=== PATIENT | male | born 1955 | race Caucasian/White ===

== ENCOUNTER 2020-11-28 11:13 | Emergency (ER) | payer BC, SELFPAY ==
--- NOTE | ~2020-11-28 | XR_ITS ---
XR knee LT min 4V DATE: 11/28/2020 11:49 INDICATION: Fall yesterday. Generalized left knee pain. TECHNIQUE: 5 views COMPARISON: None FINDINGS: There is a nondisplaced linear transverse fracture at the upper pole of the patella. There is distention of the suprapatellar bursa likely due to hemarthrosis due to the patellar fracture. No other fracture or dislocation. No periosteal reaction or bone destruction. There is mild periarticular spurring at the patellofemoral and medial compartments consistent with os teoarthritis. No radiopaque intra-articular loose body or chondrocalcinosis. IMPRESSION: Virtually nondisplaced transverse intra-articular fracture of the superior pole of patell a with associated hemarthrosis Reviewed, dictated and finalized at location A. TIME PARAMEDIC IMPRESSION: Virtually nondisplaced transverse intra-articular fracture of the s uperior pole of patella with associated hemarthrosis
[2020-11-28 11:37] VITALS: BP 145/99; PULSE 58; RESP 16; TEMP 36.4; O2SAT 99
[2020-11-28 11:39] VITALS: BP 145/99; PULSE 58; RESP 16; TEMP 36.4; O2SAT 99
--- NOTE | 2020-11-28 12:08 | ED.LOWEXIN ---
HPI - Extremity Injury (Lower) General Chief Complaint: Extremity Injury, Lower Stated Complaint: left knee pain Time Seen by Provider: 11/28/20 11:40 Source: patient and RN notes reviewed Mode of arrival: ambulatory (With cane) Limitations: no limitations History of Present Illness HPI Narrative: Patient presents today complaining of an injury to his left knee. He reports he tripped and fell at home onto his knee last night. Currently rates his pain 7/10 and has tried no quwe-hom-lokypnc treatment prior to arrival. Pain increases with bending and ambulation. Patient has numbness and tingling in the leg at baseline due to previous back surgeries and back issues, but states the numbness and tingling is no worse than normal. MD complaint: knee injury Related Data Home Medications Medication Instructions Recorded Confirmed amlodipine 11/28/20 diclofenac sodium PO 11/28/20 fenofibric acid (choline) mg PO 11/28/20 hydrochlorothiazide 11/28/20 metoprolol tartrate 11/28/20 omeprazole 11/28/20 quinapril mg 11/28/20 sertraline mg 11/28/20 Allergies Allergy/AdvReac Type Severity Reaction Status Date / Time bee venom protein (honey bee) Allergy Unknown Verified 11/28/20 11:33 Review of Systems Review of Systems: Narrative: CONSTITUTIONAL: Denies body aches, fever, chills, or sweats. EYES: Denies visual changes, redness, or discharge. ENT: Denies rhinorrhea, congestion, sore throat, or otalgia. CARDIOVASCULAR: Denies chest pain, palpitations, or edema. RESPIRATORY: Denies cough or dyspnea. GASTROINTESTINAL: Denies abdominal pain, nausea, vomiting, or diarrhea. GENITOURINARY: Denies dysuria or hematuria. SKIN: Denies rash, itching, or wounds. MUSCULOSKELETAL: Denies back pain, or myalgia. + Left knee injury NEUROLOGIC: Denies headache, or weakness. PSYCH: Denies depression or anxiety. [facility] Past Medical History Medical History (Updated 11/28/20 @ 12:16 by Emely Frank, JAVON, BC) Anxiety Depression GERD (gastroesophageal reflux disease) Hypercholesterolemia Hypertension Surgical History Surgical History (Updated 11/28/20 @ 12:11 by Emely Frank, PROGRAM ARCHITECT, BC) History of right knee joint replacement Previous back surgery Comments At time of signature, I have reviewed and agree with nursing past medical, surgical, social and family history unless otherwise noted. Please see nursing chart for further information. There is no relevant family history pertinent to the presenting complaint Exam Narrative: Exam Narrative: GENERAL: Well-appearing, well-nourished, and in no acute distress. HEAD: Normocephalic, atraumatic. EYES: EOMI. No redness or drainage. Conjunctivae normal. ENT: Mucous membranes pink and moist. NECK: Normal AROM. CHEST: No respiratory distress. EXTREMITIES: Left knee: Tenderness to the patella. Moderate effusion about the joint. No ecchymosis or erythema noted. Limited range of motion of the knee due to pain. Distal sensation intact. Capillary refill normal. Posterior tibial pulse normal. SKIN: Warm, dry, no rash. Capillary refill normal. Normal skin turgor. NEURO: No focal deficits. Alert and oriented x3. Gait limping with use of cane. PSYCH: Normal affect. No signs of depression or anxiety. Course Vital Signs Vital signs: Vital Signs Temperature 97.6 F 11/28/20 11:37 Pulse Rate 58 L 11/28/20 11:37 Respiratory Rate 16 11/28/20 11:37 Blood Pressure 145/99 H 11/28/20 11:37 Pulse Oximetry 99 11/28/20 11:37 Temperature 97.6 F 11/28/20 11:39 Pulse Rate 58 L 11/28/20 11:39 Respiratory Rate 16 11/28/20 11:39 Blood Pressure 145/99 H 11/28/20 11:39 Pulse Oximetry 99 11/28/20 11:39 Reviewed. Pt has been instructed to follow up with his PCP regarding his elevated blood pressure today. Procedures Orthopedic Splinting/Casting Injury #1: Splinting/Casting Date: 11/28/20 Splinting/Casting Time: 12:12 Side: left
== END 2020-11-28 12:25 | disposition home or self-care (01) ==
PROVIDERS: Emergency Provider Nurse Practitioner; PCP Internal Medicine
DX: S82.035A Nondisplaced transverse fracture of left patella, initial encounter for closed fracture (principal); W01.0XXA Fall on same level from slipping, tripping and stumbling without subsequent striking against object, initial encounter; K21.9 Gastro-esophageal reflux disease without esophagitis; E78.00 Pure hypercholesterolemia, unspecified; I10 Essential (primary) hypertension; Z96.651 Presence of right artificial knee joint; F41.9 Anxiety disorder, unspecified; F32.9 Major depressive disorder, single episode, unspecified
CPT/HCPCS: 73564; 99204; G0463

== ENCOUNTER 2025-08-04 11:53 | Outpatient (CLI) | payer MEDICARE, SELFPAY ==
--- OUTSIDE RECORDS SUMMARY | 2009-12-14 18:00 | XMS_ITS | Continuity of Care Document ---
Author Organization [facility] Address [address] [place] [address] Phone Care Team Providers Care Automobile Detailer Name Role Phone [facility] Unavailable Unavail able Nilda Preston Unavailable Unavailable Procedures Procedure Date Vision Svcs Frames Purchases Progressive Lens, Polycarb Tint Photochromatic, Polycarb 0 Anti-reflective Coating Tax - Medical Eye Exam & Treatment Refraction Advance Directives Directive Yes / No Effective Date File Name No Information Encounters Encounter Description Practice Location Reason(s) For Visit Diagnoses Date Provider Providers Copied on Encounter [facility], [address] [place] [address] [facility] [address], [place], [place], [id number], [place] tel:[phone] [facility] No Information [phone] [facility] . [address] [facility], [facility] [address], [place], [place], [id number], [place]. tel:[phone] Referring Provider: Rodrigo Arreola, [address], [place], [address]. tel:[phone] mcduffie Provider: Nilda Preston, [address] [facility], [place], [address]. tel:[phone] 9836 [facility], [address], [place], [place], [id number], [place] tel:[phone] [facility] No Information [phone] OD Rodrigo. [address] , [address], [place], [address], [place]. tel:[phone] Family History Family Member Type Diagnosis Age At Onset No Information Payers Payer name Insurance type Covered alliance party ID Authoriza tion(s) No Information Social History Type Description Quantity Date Captured Comments Sex Male Smoking Status No Information Chief Complaint And Reason For Visit No Information Reason For Referral Reason For Referral No Information History Of Present Illness Encounter Date Complaint History Of Prese nt Illness No Information Functional Status Date Functional Assessmen t No Information Instructions Date Instruction Additional Infor mation No Information Assessments Type Assessment Date No Information Patient Care Teams Name Effective Dates (start - stop) Status Members No Information
--- NOTE | ~2025-08-04 | XR_ITS ---
EXAMINATION: XR hand BI arthritis min 3V, 08/04/2025 12:03 BILLING TYPIST HISTORY: M18.9 - Osteoarthritis of first carpometacarpal joint, un... COMPARISON: No comparisons available. Findings: No acute fracture or malalignment. Severe degenerative changes of the carpal bones and the metacarpal carpal joints with mild of the joint spaces, osteophytosis and chondrocalcinosis. Small erosions are noted. Soft tissue swelling noted. Impression: No acute fracture or malalignment. Reviewed, dictated and finalized at location P. ING TYPIST Impression: No acute fracture or malalignment.
--- OUTSIDE RECORDS SUMMARY | 2025-08-04 14:04 | XMS_ITS | Clinical Summary ---
Author Organization [facility] Address [address] [place] [address] Care Team Providers Care Director Of Medical Review Name Role Phone Trae Dixon MD Primary Care Provider Allergies Active Allergy Reactions Criticality Noted Date Comments Duloxetine Mental status changes Low 08/30/2021 feel crazy Venom-Honey Bee Swelling High 06/07/2018 Medications sertraline (ZOLOFT) 100 mg tabletIndications:An xiety with Depression Take 1 tablet (100 mg total) by mouth nightly 100 mg am 50 mg pm Active sertraline (ZOLOFT) 50 mg tabletIndications:An xiety with Depression Take 1 tablet (50 mg total) by mouth mechanical engineer before breakfast Active triamcinolone (KENALOG) 0.1 % ointment Apply 1 Application topically as needed for irritation or rash 03/05/[address] (VOLTAREN) 75 mg EC tablet Take 1 tablet (75 mg total) by mouth 2 (two) times a day 08/06/20 23 Active fenofibrate nanocrystallized (TRICOR) 145 mg tabletIndications:hy percholesterolemia,h yperlipidemia Take 1 tablet (145 mg total) by mouth mechanical engineer before breakfast 07/23/20 23 Active FeroSuL 325 mg (65 mg iron) tabletIndications:Ir on Deficiency Anemia Take 1 tablet (325 mg total) by mouth 2 (two) times a day 08/10/20 23 Active carvediloL (COREG) 25 mg tabletIndications:My ocardial Reinfarction Prevention Take 2 tablets (50 mg total) by mouth 2 (two) times a day Active spironolactone (Aldactone) 25 mg tabletIndications:hy pertension Take 1 tablet (25 mg total) by mouth mechanical engineer before breakfast 03/26/20 24 Active metFORMIN (FORTAMET) 500 mg 24 hr tabletIndications:ty pe 2 diabetes mellitus Take 1 tablet (500 mg total) by mouth daily with breakfast 03/26/20 24 Active NIFEdipine (Procardia XL) 60 mg 24 hr tabletIndications:ht n Take 1 tablet (60 mg total) by mouth mechanical engineer before breakfast 05/14/20 24 Active hydrALAZINE (APRESOLINE) 25 mg tabletIndications:hy pertension Take 1 tablet (25 mg total) by mouth 2 (two) times a day Active furosemide (LASIX) 40 mg tabletIndications:hy pertension Take 1 tablet (40 mg total) by mouth mechanical engineer before breakfast Active ezetimibe (ZETIA) 10 mg tabletIndications:hy percholesterolemia,h yperlipidemia Take 1 tablet (10 mg total) by mouth mechanical engineer before breakfast 05/14/20 24 Active aspirin 81 mg enteric coated tabletIndications:pr evention of thrombosis Take 1 tablet (81 mg total) by mouth mechanical engineer before breakfast 05/14/20 24 Active omeprazole (PriLOSEC) 40 mg capsuleIndications:T reatment of Non-Bleeding Gastric Disorder Take 1 capsule (40 mg total) by mouth mechanical engineer before breakfast Active valsartan (DIOVAN) 320 mg tabletIndications:ch ronic heart failure,hypertension Take 1 tablet (320 mg total) by mouth daily before breakfast Active cholecalciferol, vitamin D3, (VITAMIN D3 ORAL)Indications:sup plement Take 1 tablet by mouth mechanical engineer before breakfast Active Active Problems Problem Noted Date Diagnosed Date Entrapment, ilioinguinal nerve 01/07/2025 Chronic pain of both wrists 01/07/2025 Polyneuropathy 11/04/2024 Bilateral carpal tunnel syndrome 11/04/2024 Metabolic syndrome 11/04/2024 Vocal cord leukoplakia 07/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 07/23/2024 Atherosclerosis of [place] of extremities with intermittent claudication, unspecified extremity 03/26/2024 Overview (08/19/2024): midl distal by sushma , neg senslae Aortic root dilatation 12/12/2023 Pulmonary hypertension 10/23/2023 Chronic obstructive pulmonary disease, unspecifi ed 10/11/2023 Adenomatous polyp of colon 10/06/2023 Anemia, iron deficiency 10/06/2023 Overview (08/19/2024): nml b12 and foalte Left bundle branch hemiblock 10/06/2023 Obesity 10/06/2023 Overview (08/19/2024): could ont afford wegovy Other abnormal glucose 10/06/2023 Influenza due to unidentifie d influenza virus with other respiratory manifestations 10/06/2023 Chronic diastolic (congestive) heart failure Overview (08/19/2024): lonnie and isa not covered Wound dehiscence 10/17/2022 Fusion of spine of thoracolumbar region 10/02/19 Spinal stenosis, lumbar essence on, with neurogenic claudication 08/23/2022 Spinal stenosis of lumbar region with radiculopa thy 08/23/2022 COVID-19 07/12/2022 Adrenal mass 06/29/2022 Smoker 06/19/2022 Bilateral impacted cerumen 06/13/2022 Eczema 06/13/2022 H/O excision of lamina of ce rvical vertebra for decompression of spinal cord 05/08/2022 Cervical stenosis of spine 03/22/2022 Prophylactic antibiotic 11/10/2021 Encounter for education 11/10/2021 Cervical spondylosis with myelopathy 11/04/2021 Alteration in anticoagulation 11/04/2021 Vitamin D deficiency 11/04/2021 Anxiety state 10/11/2021 Osteoarthritis 10/11/2021 Back pain 10/11/2021 Depression 10/11/2021 Epicondylitis 10/11/2021 Gastroesophageal reflux disease 10/11/2021 History of colonic polyps 10/11/2021 Essential hypertension 10/11/2021 Hypertriglyceridemia 10/11/2021 Olecranon bursitis of left elbow 09/13/2021 Ex-smoker 01/19/2021 Family history of sudden 01/19/2021 Postoperative seroma of subc utaneous tissue after non-dermatologic procedure 07/06/2020 Fixation hardware in spine 10/29/2019 Loosening of hardware in spine 10/16/2019 S/P lumbar laminectomy 03/08/2019 Thoracic compression fracture 03/08/2019 Spinal instability, lumbosacral 02/25/2019 Spinal stenosis of lumbar region 09/19/2011 Encounters Date Type Department Care Team Description 05/05/2025 11:00 AM CDT Therapy [facility] Medicine Otolaryngology [address] [place] [address] Ning Hyatt, DENTAL COORDINATOR Muscle tension dysphonia (Primary Dx); Globus sensation from Last 3 Months Immunizations Immunization Administration Dates Next Due Influenza, Quadrivalent, Hig h Dose, Preservative Free, Intrr 08/26/2022 Surgical History Surgery Date Site/Laterality Comments ELBOW SURGERY 10/01/2020 - 09/30/2021 HAND SURGERY 10/01/1998 - 09/30/1999 KNEE ARTHROPLASTY 10/01/2017 - 09/30/2018 Right OTHER SURGICAL HISTORY 06/01/2020 - 06/30/2020 Left L5-S1 charles procedure EPIDURAL STEROID INJECTION Multiple to lumbar / scarum area OTHER SURGICAL HISTORY 10/01/2019 - 10/31/2019 Bilateral L5-S1 pedical screw fixation LUMBAR FUSION 03/01/2019 - 03/30/2019 L5-S1 anterior lumbar interbody fusion with allograft, internal fixation DISCOGRAM 12/30/2018 - 01/28/2019 POSTERIOR LAMINECTOMY / DECOMPRESSION LUMBAR SPINE 08/01/2014 - 08/30/2014 LAMINOPLASTY POSTERIOR CERVICAL SPINE 03/22/2022 C4 - C6 BACK SURGERY 10/01/2022 - 09/30/2023 I&D BACK SURGERY 08/23/2022: [id number] PSIF with correction of kyphotic deformity with 03/22/22- C4-7 laminoplasty and Revision laminectomy COLONOSCOPY -2023 Medical History Medical History Date Comments Anxiety Hypertension 1999 GERD (gastroesophageal reflux disease) 1999 Peripheral neuropathy Depression Arthritis Pneumothorax with hemothorax, open, traumatic Influenza due to unidentifie d influenza virus with other respiratory manifestations 10/06/2023 Sleep apnea 2022 Anemia 2022 COPD (chronic obstructive pulmonary disease) 202 I Dizziness 2019 CHF (congestive heart failure) ([facility]) 2022 Family History Medical History Relation Name Comments Allergies Brother Gerson Luong Hypertension Brother Gerson Luong Emphysema Father Allergies Mother Taty Cano Cancer Mother Taty Cano Anesthesia problems Neg Hx Malig Hypertension Neg Hx Malig Hyperthermia Neg Hx Pseudochol deficiency Neg Hx Relation Name Status Comments Brother Gerson Luong Father Mother Taty Cano Social History Tobacco Use Types Packs/Day Years Used Date Smoking Tobacco: Former Cigarettes 2 49 1 964 - 2012 Smokeless Tobacco: Never Tobacco Cessation:Counseling Given: No Social Connection and Isolation Panel Answer Date Recorded In a typical week, how many times do you talk on the phone with family, friends, or neighbors? More than three times a week 10/20/2022 How often do you get togethe r with friends or relatives? Three times a week 10/20/2022 How often do you attend [facility] or caodaism services? 1 to 4 times per year 10/20/2022 Do you belong to any clubs o r organizations such as sikhism groups, unions, fraternal or athletic groups, or school groups? Yes 10/20/2022 How often do you attend meet ings of the clubs or organizations you belong to? 1 to 4 times per year 10/20/2022 Are you , , di vorced, , never , or living with a partner? Never 10/20/2022 AUDIT-C Answer Date Recorded Q1: How often do you have a drink containing alc ohol? 2-3 times a week 08/07/2024 Q2: How many drinks containi ng alcohol do you have on a typical day when you are drinking? 1 or 2 08/07/2024 Q3: How often do you have si x or more drinks on one occasion? Never 08/07/2024 Overall Financial Resource Strain (CARDIA) Answe r Date Recorded How hard is it for you to pa y for the very basics like food, housing, medical care, and heating? Not hard at all 10/20/2022 PHQ-2 Answer Date Recorded PHQ-2 Total Score 0 10/17/2022 Hunger Vital Sign Answer Date Recorded Within the past 12 months, y ou worried that your food would run out before you got the money to buy more. Never true 10/20/19 Within the past 12 months, t he food you bought just didn't last and you didn't have money to get more. Never true 10/20/2022 PRAPARE - Transportation Answer Date Re corded In the past 12 months, has l ack of transportation kept you from medical appointments or from getting medications? No 10/02 In the past 12 months, has l ack of transportation kept you from meetings, work, or from getting things needed for daily living? No 10/20/2022 Housing Stability Vital Sign Answer Orestes e Recorded In the last 12 months, was t here a time when you were not able to pay the mortgage or rent on time? No 10/20/2022 In the last 12 months, how many places have you lived? 1 10/20/2022 In the last 12 months, was t here a time when you did not have a steady place to sleep or slept in a custodial (including now)? No 10/20/2022 Personal Safety Answer Date Recorded Have you ever been in or are you currently in a harmful physical or emotional relationship or is someone making you feel afraid or unsafe? Denies 09/15/2024 Sex and Gender Information Value Date Recorded Sex Assigned at Not on file Legal Sex Male 1:44 PM UNATTENDED GROUND SENSOR SPECIALIST Gender Identity Male 08/30/2021 9:43 AM UNATTENDED GROUND SENSOR SPECIALIST Sexual Orientation Straight 08/30/2021 9: 43 AM UNATTENDED GROUND SENSOR SPECIALIST Last Filed Vital Signs Vital Sign Reading Time Taken Comments Blood Pressure 141/92 11/03/2024 1:50 PM UNATTENDED GROUND SENSOR SPECIALIST Pulse 71 11/03/2024 1:50 PM UNATTENDED GROUND SENSOR SPECIALIST Temperature 36.5 C (97.7 F) 09/15/2024 10:05 AM UNATTENDED GROUND SENSOR SPECIALIST Respiratory Rate 14 09/15/2024 10:31 AM UNATTENDED GROUND SENSOR SPECIALIST Oxygen Saturation 95% 09/15/2024 10:31 AM UNATTENDED GROUND SENSOR SPECIALIST Inhaled Oxygen Concentration - - Weight 107 kg (236 lb) 11/03/2024 1:50 PM UNATTENDED GROUND SENSOR SPECIALIST Height 177.8 cm (5' 10) 11/03/2024 1:50 PM UNATTENDED GROUND SENSOR SPECIALIST Body Mass Index 33.86 11/03/2024 1:50 PM UNATTENDED GROUND SENSOR SPECIALIST Plan of Treatment Health Maintenance Due Date Last Done Comments Colon Cancer Screening-Colonoscopy 1955 Hepatitis C Screening 1955 Prostate Cancer Screening-PSA 1955 DTaP/Tdap/Td Vaccine (1 - Tdap) 01/02/1967 Hepatitis B Screening 01/02/1974 Lung Cancer Screening 01/02/2006 Zoster Vaccine (1 of 2) 01/02/2006 Pneumococcal vaccine 65+ (2 of 2 - PCV) 08/07/2015 08/07/2014 Abdominal Aortic Aneurysm (A AA) Screen 01/02/2021 Well Visit 65+ 01/02/2021 Depression Screening 10/16/2023 10/16/2022, 10/16/19 Covid-19 Vaccine (4 - 2024-2 6 season) 2025 08/09/2021, 12/20/2020, 11/23/2020 Influenza Vaccine (#1) 2025 2, 08/06/2020, 07/16/2019, Additional history exists Fall Risk Assessment 09/15/2025 09/15/2024 Medical Devices Implanted Type Area Grain Scooper Device Identifier Shelf Expiration Date Model / Serial / Lot Allosource Crushed Chip Frozen Graft 90ml Bone Cancellous [id number] - [id number] Implanted:Qty: 1 on 08/23/2022 by Jered Hernandez MD at [facility] Graft N/A: Spine Lumbar Allosource 04/24/2027 [id number] / / [id number] Medtronic Inc Centerpiece 12mm Lateral Hole Open Door Color Coded Spine Plate [id number] - [id number] Implanted:Qty: 3 on 03/22/2022 by Jered Hernandez MD at [facility] N/A: Spine Cervical Medtronic Inc [id number] / / Medtronic Inc Centerpiece 2.6mm 5mm Self Tap Stab Grab Color Coded Spine Screw [id number] - [id number] Implanted:Qty: 6 on 03/22/2022 by Jered Hernandez MD at [facility] N/A: Spine Cervical Medtronic Inc [id number] / / Medtronic Inc Centerpiece 2.6mm 7mm Self Tap Stab Grab Color Coded Spine Screw [id number] - [id number] Implanted:Qty: 6 on 03/22/2022 by Jered Hernandez MD at [facility] N/A: Spine Cervical Medtronic Inc [id number] / / Depuy Synthes Spine Expedium 5mm 55mm Polyaxial 1 Innie Spine Screw Bone Titanium 5.5 [id number] - [id number] Implanted:Qty: 1 on 08/23/2022 by Jered Hernandez MD at [facility] N/A: Spine Lumbar Depuy Synthes Spine [id number] / / Depuy Synthes Spine Expedium 6.5mm 50mm Polyaxial Spine Screw Bone Titanium 5.5mm Roger [id number] - [id number] Implanted:Qty: 6 on 08/23/2022 by Jered Hernandez MD at [facility] N/A: Spine Lumbar Depuy Synthes Spine [id number] / / Depuy Synthes Spine Expedium 6.5mm 55mm Polyaxial Spine Screw Bone Titanium 5.5mm Roger [id number] - [id number] Implanted:Qty: 2 on 08/23/2022 by Jered Hernandez MD at [facility] N/A: Spine Lumbar Depuy Synthes Spine [id number] / / Depuy Synthes Spine Expedium 7mm 55mm 1 Innie Polyaxial Spine Screw Bone Titanium [id number] - [id number] Implanted:Qty: 2 on 08/23/2022 by Jered Hernandez MD at [facility] N/A: Spine Lumbar Depuy Synthes Spine [id number] / / Depuy Synthes Spine Expedium 7.5mm 55mm 1 Innie Polyaxial Spine Screw Bone Titanium [id number] - [id number] Implanted:Qty: 1 on 08/23/2022 by Jered Hernandez MD at [facility] N/A: Spine Lumbar Depuy Synthes Spine [id number] / / Depuy Synthes Spine Expedium 8mm 60mm Polyaxial Spine Screw Bone Titanium [id number] - [id number] Implanted:Qty: 1 on 08/23/2022 by Jered Hernandez MD at [facility] N/A: Spine Lumbar Depuy Synthes Spine [id number] / / Depuy Synthes Spine Expedium 8mm 50mm Polyaxial Screw Bone [id number] - [id number] Implanted:Qty: 1 on 08/23/2022 by Jered Hernandez MD at [facility] N/A: Spine Lumbar Depuy Synthes Spine [id number] / / Depuy Synthes Spine Expedium 8mm 55mm Polyaxial Spine Screw Bone Titanium Nonsterile [id number] - [id number] Implanted:Qty: 1 on 08/23/2022 by Jered Hernandez MD at [facility] N/A: Spine Lumbar Depuy Synthes Spine [id number] / / Depuy Synthes Spine Expedium 1 Inner Monoaxial Spine Screw Set Titanium [id number] - [id number] Implanted:Qty: 16 on 08/23/2022 by Jered Hernandez MD at [facility] N/A: Spine Lumbar Depuy Synthes Spine [id number] / / Depuy Synthes Spine Expedium 5.5mm 480mm Roger Spinal Titanium Nonsterile [id number] - [id number] Implanted:Qty: 2 on 08/23/2022 by Jered Hernandez MD at [facility] N/A: Spine Lumbar Depuy Synthes Spine [id number] / / Depuy Synthes Spine Substitute Bone Graft Fibergraft Gps Medium Putty 6cc [id number] - [id number] Implanted:Qty: 1 on 08/23/2022 by Jered Hernandez MD at [facility] N/A: Spine Lumbar Depuy Synthes Spine [id number] 01/11/2025 [id number] / / [id number] Depuy Synthes Spine Substitute Bone Graft Fibergraft Gps Medium Putty 6cc [id number] - [id number] Implanted:Qty: 1 on 08/23/2022 by Jered Hernandez MD at [facility] N/A: Spine Lumbar Depuy Synthes Spine [id number] / / [id number] Allosource Crushed Chip Frozen Graft 30ml Bone Cancellous [id number] - [id number] Implanted:Qty: 1 on 08/23/2022 by Jered Hernandez MD at [facility] N/A: Spine Lumbar Allosource 01/30/2027 [id number] / / [id number] Medtronic Inc Infuse 18mm Sponge [id number] - [id number] Implanted:Qty: 1 on 08/23/2022 by Jered Hernandez MD at [facility] N/A: Spine Lumbar Medtronic Inc [id number] 01/29/2024 [id number] / / [id number] Medtronic Inc Infuse 18mm Sponge [id number] - [id number] Implanted:Qty: 1 on 08/23/2022 by Jered Hernandez MD at [facility] N/A: Spine Lumbar Medtronic Inc [id number] 01/29/2024 [id number] / / [id number] Depuy Synthes Spine Expedium 5mm 50mm 1 Innie Polyaxial Spine Screw Bone Titanium [id number] - [id number] Implanted:Qty: 1 on 08/23/2022 by Jered Hernandez MD at [facility] N/A: Spine Lumbar Depuy Synthes Spine [id number] / / Depuy Synthes Spine Substitute Bone Graft Fibergraft Large Bioactive Glass Putty [id number] - [id number] Implanted:Qty: 1 on 09/04/2022 by Jered Hernandez MD at [facility] N/A: Spine Lumbar Depuy Synthes Spine [id number] 08/03/2024 [id number] / / [id number] Allosource Crushed Chip Frozen Graft 60ml Bone Cancellous [id number] - [id number] Implanted:Qty: 1 on 09/04/2022 by Jered Hernandez MD at [facility] N/A: Spine Lumbar Allosource [id number] 08/12/2026 [id number] / / [id number] Explanted Type Area Grain Scooper Device Identifier Shelf Expiration Date Model / Serial / Lot Spinous Process Clamp Explanted:Qty: 1 on 08/23/2022 by Jered Hernandez MD at [facility] N/A: Spine Lumbar Medtronic Screws Explanted:Qty: 4 on 08/23/2022 by Jered Hernandez MD at [facility] N/A: Spine Lumbar Medtronic Description:7.0 x 55m x2 8.0 x 50mm x1 8.0 x 55mm x1 Rods Explanted:Qty: 2 on 08/23/2022 by Jered Hernandez MD at [facility] N/A: Spine Lumbar Medtronic Set Screws Explanted:Qty: 4 on 08/23/2022 by Jered Hernandez MD at [facility] N/A: Spine Lumbar Medtronic Insurance MEDICARE [facility] MEDICARE [employer] SENIOR SUPPLEMENT Advance Directives For more information, please contact: [phone] * Full Code (Latest Code Status on File) Date Activated Date Inactivated Comments 10/17/2022 10:21 PM 10/19/2022 9:12 PM * Full Code Date Activated Date Inactivated Comments 08/23/2022 11:41 PM 09/06/2022 9:41 PM * Full Code Date Activated Date Inactivated Comments 03/22/2022 6:06 PM 03/24/2022 5:28 PM Care Teams Director Of Medical Review Relationship Specialty Start Date End Date Trae Dixon MD PCP - General Internal Medicine 04/26/21
--- OUTSIDE RECORDS SUMMARY | 2025-08-04 14:04 | XMS_ITS | Clinical Summary ---
Author Organization [facility] Address [address] [place] [address] Care Team Providers Care Slot Router Name Role Phone Pablito Ramírez MD Unavailable [phone] Mavis Parker RN Unavailable [phone] Trae Dixon MD Primary Care Provider [phone] [facility],non-owned Affiliates and Associated Physician Practices is amultiple site organization consisting of ambulatory clinics and hospital sitesin [place], [place], [place] and [place]. This disclosure is being madepursuant to the Care Everywhere program and may not contain all information available regarding this patient. Last updated 18.[facility] [employer] Allergies Active Allergy Reactions Criticality Noted Date Comments Erythromycin Nausea and/or Vomiting 09/11/2011 Stomach cramping Medications * Be aware that medications may not be up to date on this document. Alwaysverify current medications with the patient. simvastatin (ZOCOR) 20 MG tablet Take 20 mg by mouth once daily. Active quinapril (ACCUPRIL) 40 MG tablet Take 40 mg by mouth once daily. Active omeprazole (PRILOSEC) 20 MG capsule Take 20 mg by mouth daily before breakfast. Active hydrochlorothiaz apolinar (HYDRODIURIL) 25 MG tablet Take 25 mg by mouth once daily. Active amLODIPine (NORVASC) 10 MG tablet Take 10 mg by mouth once daily. Active metoprolol tartrate IR (LOPRESSOR) 100 MG tablet Take 100 mg by mouth 2 times daily. Active methocarbamol (ROBAXIN) 750 MG tablet Take 1 Tab by mouth every 6 hours as needed for Muscle Spasms. 40 Tab 1 08/19/2014 Active hydrocodone-acet aminophen (NORCO) 5-325 MG tablet Take 1-2 Tabs by mouth every 8 hours as needed. 50 Tab 0 08/19/2014 Active Active Problems Problem Noted Date Diagnosed Date Spinal stenosis, lumbar essence on, with neurogenic claudication 09/19/2011 Degeneration of lumbar or lumbosacral interverte bral disc 09/19/2011 Back pain Depression Arthritis HTN (hypertension) Hyperlipemia Immunizations Immunization Administration Dates Next Due INFLUENZA VACCINE, CELL CULT URE, TRIV. (FLUCELVAX TRIVALENT; 6MO+), 0.5 ML (CCIIV3) 08/07/2014 PNEUMOCOCCAL PPSV23 08/07/2014 Family History Relation Name Status Comments Father (Age 64) emphazema Mother Alive (Age 81) Sister Alive 55 twins Social History Tobacco Use Types Packs/Day Years Used Date Smoking Tobacco: Every Day Cigarettes 1.5 52.8 Started: 10/01/1972 Smokeless Tobacco: Never Tobacco Cessation:Ready to Q uit: Yes; Counseling Given: Yes Alcohol Use Standard Drinks/Week Comments Yes 50 (1 standard drink = 0.6 oz pu re alcohol) daily Sex and Gender Information Value Date Recorded Sex Assigned at Not on file Legal Sex Male 5:25 AM SLOPE TENDER Gender Identity Not on file Sexual Orientation Not on file 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 Not on file Not on file Last Filed Vital Signs Vital Sign Reading Time Taken Comments Blood Pressure 127/92 10/05/2014 11:50 AM SLOPE TENDER Pulse 74 10/05/2014 11:50 AM SLOPE TENDER Temperature 37.1 C (98.8 F) 08/11/2014 8:10 AM SLOPE TENDER Respiratory Rate 20 08/11/2014 8:10 AM SLOPE TENDER Oxygen Saturation 96% 08/11/2014 8:10 AM SLOPE TENDER Inhaled Oxygen Concentration - - Weight 97.5 kg (215 lb) 10/05/2014 11:50 AM SLOPE TENDER Height 180.3 cm (5' 11) 10/05/2014 11:50 AM SLOPE TENDER Body Mass Index 29.99 10/05/2014 11:50 AM SLOPE TENDER Plan of Treatment Health Maintenance Due Date Last Done Comments COLOGUARD (AGES 45-75) - COL ON CA SCREENING 1956 COLON MONITORING 1956 COLONOSCOPY - COLON CA SCREENING 1956 CT COLONOGRAPHY - COLON CA SCREENING 1956 Colorectal Cancer Screening 1956 FIT - COLON CA SCREENING 1956 FLEX SIG - COLON CA SCREENING 1956 HEPATITIS C SCREENING 12/29/1973 DTAP/TDAP/TD VACCINES (1 - Tdap) 01/02/1975 ZOSTER VACCINE (1 of 2) 01/02/2006 PNEUMOCOCCAL VACCINE 50+ (2 of 2 - PCV) 08/07/2015 08/07/2014 AAA SCREENING 01/02/2021 DEPRESSION SCREENING 10/01/2024 COVID-19 VACCINE (1 - 2023-2 5 season) 2025 INFLUENZA VACCINE (#1) 2025 08/07/2014 Respiratory Syncytial Virus (RSV) Vaccine Pt: or over 60 yrs (1 - 1-dose 75+ series) 01/02/2031 HEPATITIS B VACCINE Aged Out No longe r eligible based on patient's age to complete this topic HIB VACCINE Aged Out No longer eligi ble based on patient's age to complete this topic HPV VACCINE Aged Out No longer eligi ble based on patient's age to complete this topic MENINGOCOCCAL (Group B) VACC INE SHARED DECISION-MAKING Aged Out No longer eligibl e based on patient's age to complete this topic MENINGOCOCCAL GROUPS A/C/Y/W VACCINE Aged Out No longer eligible b ased on patient's age to complete this topic Medical Devices Implanted Type Area Operations Vice President Device Identifier Shelf Expiration Date Model / Serial / Lot Chip Canc Bone Frz Dried 4-9.5mm 30cc Implanted:Qty: 1 on 08/06/2014 by Gerson Watkins MD at [facility] N/A: Spine Lumbar [employer] 10/25/2018 [id number] / / [id number] Kt Infs Bone Grft Med Implanted:Qty: 1 on 08/06/2014 by Gerson Watkins MD at [facility] N/A: Spine Lumbar Medtronic [employer] 08/01/2015 [id number] / / [id number] Plate Spire 45mm Implanted:Qty: 1 on 08/06/2014 by Gerson Watkins MD at [facility] N/A: Spine Lumbar Medtronic [employer] [id number] / / St Scrw Brk Off M4 Implanted:Qty: 1 on 08/06/2014 by Gerson Watkins MD at [facility] N/A: Spine Lumbar Medtronic [employer] [id number] / / Insurance [facility] Advance Directives * Full Code (Latest Code Status on File) Date Activated Date Inactivated Comments 08/10/2014 12:59 PM 08/11/2014 1:26 PM * Full Code Date Activated Date Inactivated Comments 08/06/2014 4:22 PM 08/07/2014 12:17 PM Care Teams Slot Router Relationship Specialty [place] [address] [place], [place] [id number] PCP - General 03/05/18 Pablito Ramírez MD Referring Physician Internal Medicine 07/07/14 Mavis Parker, RN Automatic Typewriter Inspector 08/06/14
== END 2025-08-04 11:54 | disposition home or self-care (01) ==
PROVIDERS: PCP Internal Medicine; Visit Provider Plastic Surgery
DX: M18.12 Unilateral primary osteoarthritis of first carpometacarpal joint, left hand (principal); M18.11 Unilateral primary osteoarthritis of first carpometacarpal joint, right hand; M25.742 Osteophyte, left hand; M25.741 Osteophyte, right hand; M11.242 Other chondrocalcinosis, left hand; M11.241 Other chondrocalcinosis, right hand; M85.842 Other specified disorders of bone density and structure, left hand; M85.841 Other specified disorders of bone density and structure, right hand; M79.89 Other specified soft tissue disorders
CPT/HCPCS: 73130